=== PATIENT | male | born 2000 | race Caucasian/White ===

== ENCOUNTER 2019-09-21 00:24 | Emergency (ER) | payer OTHER ==
[2019-09-21] MEDS ORDERED: Activated Charcoal 50gm/240ml Btl ORAL ONE (02:15)
== END 2019-09-21 05:55 ==
DX: F19.10 Other psychoactive substance abuse, uncomplicated (principal); S01.81XA Laceration without foreign body of other part of head, initial encounter; Z88.8 Allergy status to other drugs, medicaments and biological substances; Z91.040 Latex allergy status